=== PATIENT | male | born 1975 | race Two or more races ===

== ENCOUNTER 2018-04-27 15:40 | Emergency (ER) | payer OTHER ==
[~2018-04-27] VITALS: Ht 180.3 cm; Wt 105.0 kg
[2018-04-27] MEDS ORDERED: DIVA500T3 PO (15:56)
[2018-04-27] MEDS ORDERED: LISI-604 PO (15:56)
[2018-04-27] MEDS ORDERED: ONDANSETRON HCL 4MG/2ML VIAL IV STA (16:16)
[2018-04-27] MEDS ORDERED: SODIUM CHLORIDE 0.9% 1,000 ML IV ONE (16:16)
[2018-04-27] MEDS ORDERED: LORAZEPAM 2MG/ML CPJ IV ONE (16:30)
[2018-04-27 17:16] LABS: BASOPHILS % 0.3 % (0.0-2.0); EOSINOPHILS % 0.7 % (0.0-5.0); HEMATOCRIT. 39.6 % (42.0-52.0); HEMOGLOBIN. 13.5 g/dL (14.0-18.0); MEAN CORPUSCULAR HEMOGLOBIN 31.3 pg (28.0-32.0); MEAN CORPUSCULAR VOLUME 91.9 fL (80.0-94.0); MEAN PLATELET VOLUME 8.6 fl (7.4-10.4); MONOCYTES % 7.3 % (2.0-8.0); NEUTROPHILS % 59.7 % (40.0-76.0); PLATELET 145 x1000/uL (130-400); RED BLOOD CELL COUNT 4.31 mill/uL (4.7-6.1); RED CELL DISTRIBUTION WIDTH 13.3 % (11.6-14.6)
[2018-04-27 17:19] LABS: CHLORIDE 107 mEq/L (98-107)
[2018-04-27 17:20] LABS: INR 1.1; PROTHROMBIN TIME 11.4 sec (9.4-11.6)
[2018-04-27] MEDS ORDERED: ACETAMINOPHEN WITH CODEINE 300/30MG TABLET PO ONE (20:00)
[2018-04-27 20:21] VITALS: BP 129/81
== END 2018-04-27 20:59 | disposition short-term general hospital (02) ==
LOC: ER 15:40
DX: G93.40 Encephalopathy, unspecified (principal); R56.9 Unspecified convulsions; I10 Essential (primary) hypertension; Z88.1 Allergy status to other antibiotic agents
CPT/HCPCS: 36415; 70450; 80053; 80165; 85025; 85610; 93005; 96361; 96374; 96375; 99285; J2060; J2405; J7030; Z7610